=== PATIENT | female | born 1965 | race Caucasian/White ===

== ENCOUNTER 2021-06-26 17:08 | Emergency (ER) | payer MEDICAID, SELFPAY ==
[2021-06-26 17:08] VITALS: BP 126/93; PULSE 102; RESP 18; TEMP 37; O2SAT 98; BMI 19.7
[2021-06-26 17:39] LABS: Basophils # 0.1 K/mm3 (0-0.2); Basophils % 0.7 % (0.1-2.0); Chloride 106 mmol/L (98-107); Eosinophils # 0.2 K/mm3 (0.0-0.4); Eosinophils % 2.2 % (0.1-12.0); Hematocrit 42.8 % (37.0-47.0); Hemoglobin 14.1 g/dL (12.2-16.2); Lymphocytes # 2.9 K/mm3 (0.7-4.5); Mean Corpuscular HGB Conc 33.1 g/dL (31.8-35.4); Mean Corpuscular Hemoglobin 32.8 pg (27.0-31.2); Mean Corpuscular Volume 99.1 fl (81-99); Mean Platelet Volume 8.4 fl (7.4-10.4); Monocytes # 0.3 K/mm3 (0.1-1.0); Monocytes % 4.2 % (1.7-9.3); Neutrophils # 3.5 K/mm3 (1.8-7.8); Neutrophils % 50.9 % (37.0-80.0); Platelet Count 163 K/mm3 (142-424); Potassium 3.7 mmoL/L (3.5-5.1); Red Blood Count 4.32 M/mm3 (4.20-5.40); Red Cell Distribution Width 13.6 % (11.5-17.5); Sodium 143 mmol/L (136-145); White Blood Count 6.9 K/mm3 (4.8-10.8)
[2021-06-26 17:42] LABS: Anion Gap 12.7 mEq/L (5-15); Blood Urea Nitrogen 4 mg/dl (7-17); Calcium 9.3 mg/dl (8.4-10.2); Carbon Dioxide 28 mmol/L (22.0-30.0); Creatinine Clearance Estimated 86 mL/min (50-200); Estimated Glomerular Filt Rate 103 ml/min (>60); GFR (African American) 125 ML/MIN (>60); Glucose 88 mg/dl (74-100); Magnesium 1.8 mg/dl (1.6-2.3)
--- NOTE | 2021-06-26 17:51 | [facility].EDGENADL ---
ED Disposition Clinical Impression: Seizure Disposition: Home, Self-Care Condition on Discharge: Good Instructions: DI for Seizure Disorder -- Adult Additional Instructions: Return the emergency department for seizure otherwise do not drive or use heavy machinery or any other situation that put you at risk of seizure. Follow-up with your primary care physician within the next few days. Referrals: Provider,Referral, [Primary Care Provider] - - Critical Care Critical Care Time: No Attestation: On 06/26/21, the high probability of a clinically significant, sudden or life threatening deterioration of the following system(s) required my full and direct attention, intervention and personal management. The time I documented below is in addition to time spent performing reported procedures but includes the following listed in this critical care notation. Medical Decision Making - Medical Records Medical records reviewed: Yes: I reviewed the patient's medical records. - [facility] Inquiry Pt receiving controlled substance: No Vital Signs: 06/26/21 17:08 Temperature 98.6 F Temperature Source Oral Pulse Rate [Left] 102 H Respiratory Rate 18 Blood Pressure [Right Arm] 126/93 H Blood Pressure Mean [Right Arm] 104 Blood Pressure Source [Right Arm] Automatic Cuff Blood Pressure Position [Right Arm] Supine 02 Sat by Pulse Oximetry 98 Oxygen Delivery Method Room Air - Lab Data Lab Results 06/26/21 17:25: WBC 6.9, RBC 4.32, Hgb 14.1, Hct 42.8, MCV 99.1 H, MCH 32.8 H, MCHC 33.1, RDW 13.6, Plt Count 163, MPV 8.4, Neut % (Auto) 50.9, Lymph % (Auto) 42.0, Luna % (Auto) 4.2, Eos % (Auto) 2.2, Baso % (Auto) 0.7, Neut # (Auto) 3.5, Lymph # (Auto) 2.9, Luna # (Auto) 0.3, Eos # (Auto) 0.2, Baso # (Auto) 0.1 06/26/21 17:25: Sodium 143, Potassium 3.7, Chloride 106, Carbon Dioxide 28, Anion Gap 12.7, BUN 4 L, Creatinine 0.60, Estimated Creat Clear 86, Estimated GFR 103, Est GFR ( Amer) 125, Glucose 88, Calcium 9.3, Magnesium 1.8, TSH 1.77 Result diagrams: 06/26/21 17:25 06/26/21 17:25 Orders (Tests/Meds): ED MEDICATIONS Generic Name Dose Route Start Last Admin Trade Name Freq PRN Reason Stop Dose Admin Sodium Chloride 1,000 mls @ 999 mls/hr 06/26/21 17:30 06/26/21 17:36 Sod Chlor 0.9% 1000ml Bag IV 06/26/21 18:30 999 mls/hr .[id number] ROXANNE Administration Discontinued Medications Generic Name Dose Route Start Last Admin Trade Name Freq PRN Reason Stop Dose Admin Diphenhydramine HCl 25 mg 06/26/21 17:29 06/26/21 17:39 Diphenhydramine 50mg/Ml Vial IV 06/26/21 17:30 25 mg ONCE ONE Administration Levetiracetam 1,500 mg/ Sodium 115 mls @ 230 mls/hr 06/26/21 17:29 06/26/21 17:43 Chloride IV 06/26/21 17:30 230 mls/hr ONCE ONE Administration Ketorolac Tromethamine 30 mg 06/26/21 18:11 06/26/21 18:18 Ketorolac 30mg/Ml Vial IV 06/26/21 18:12 30 mg ONCE ONE Administration Metoclopramide HCl 10 mg 06/26/21 17:29 06/26/21 17:39 Metoclopramide Hcl 10mg/2ml Vial IVP 06/26/21 17:30 10 mg ONCE ONE Administration Medical Decision Narrative: 56-year-old female presents with episodes of seizure. She is in no acute distress nontoxic-appearing comfortable in the room has normal neurological exam. No concerning findings for subarachnoid hemorrhage meningitis or other emergent pathology. Migraine is typical in nature. Plan to treat with migraine medicine as well as load her with Keppra. She is not having any episodes at this moment and will monitor in the emergency department. On reexamination headache is completely resolved. Laboratory evaluation otherwise unremarkable recommend to continue Keppra and follow-up with primary care physician within the next few days given strict seizure precautions otherwise General Adult HPI - General Chief complaint: Seizure Stated complaint: seizure Time Seen by Provider: 06/26/21 17:10 Mode of Arrival: Wheelchair Limitations: No L
[2021-06-26 18:13] LABS: Thyroid Stimulating Hormone 1.77 uIU/mL (0.465-4.68)
[2021-06-26 19:15] VITALS: BP 132/94; PULSE 74; RESP 18; TEMP 36.9; O2SAT 99
== END 2021-06-26 19:24 | disposition home or self-care (01) ==
PROVIDERS: Emergency Provider Emergency Medicine
DX: G40.909 Epilepsy, unspecified, not intractable, without status epilepticus (principal)
CPT/HCPCS: 80048; 83735; 84443; 85025; 96365; 96367; 96375; 99282; J1953